=== PATIENT | male | born 1945 | race Caucasian/White ===

== ENCOUNTER 2019-03-01 14:32 | Inpatient (IN) | payer OTHER, MEDICAID ==
[~2019-03-01] VITALS: Ht 152.4 cm; Wt 66.7 kg
[2019-03-01 15:01] VITALS: BP 112/60
--- NOTE | 2019-03-01 15:15 | NUR ---
73 Y MALE BIB CAREGIVER C/O TREMORS X3 HOURS. PER MATRIX REPAIRER PT UNABLE TO STAND UP AND MORE CONSFUSED THAN USUAL. CAREGIVER STATES PATIENT USUALLY ENJOYS INTERACTING BUT AFTER LUNCH HAD NO DESIRE TO COMMUNICATE. PT HARD OF HEARING. CAREGIVER COMMUNICATES BY WRITING DOWN INFORMATION ON AN IPAD AND DISPLAYING IT FOR PT TO SEE. PT VERBAL WHEN HE WANTS TO COMMUNICATE. PT ALERT. PT CONTINENT WITH ASSISTANCE. WEARS DIAPER BRIEFS. AMBULATES WITH ASSISTANCE. USES WHEELCHAIR. BED IS DOWN, BED RAIL X 2, ERMD TO SEE PT. MEDHX:DEMENTIA, DEPRESSION, PSYCHOSIS, HYPOTHYROIDISM, GERD, HTN, BPH SEE MED REC
--- NOTE | 2019-03-01 15:23 | NUR ---
PT PLACED ON FENCE MANUFACTURE SUPERVISOR
[2019-03-01] MEDS ORDERED: NACL 0.9% 2,000 ML IV SCH (15:36)
--- NOTE | 2019-03-01 15:39 | NUR ---
DR ELDRIDGE NOTIFIED
[2019-03-01] MEDS ORDERED: KETOROLAC 30 MG/ML VIAL IVP ONE (15:40)
[2019-03-01] MEDS ORDERED: diphenhydrAMINE 50 MG/ML VIAL IVP ONE (15:40)
[2019-03-01] MEDS ORDERED: PIPERACILLIN/TAZOBACTAM 3.375 GM in DEXT 5% MINI-BAG PLUS 50 ML IV ONE (15:40)
[2019-03-01] MEDS ORDERED: POLY17PD65 PO (15:47)
[2019-03-01] MEDS ORDERED: DONE10TA10 PO (15:47)
[2019-03-01] MEDS ORDERED: FAMO-90 PO (15:47)
[2019-03-01] MEDS ORDERED: DOCU-299 PO (15:47)
[2019-03-01] MEDS ORDERED: BENZ-248 PO (15:47)
[2019-03-01] MEDS ORDERED: NIFE30TE8 PO (15:47)
[2019-03-01] MEDS ORDERED: HAL2L PO (15:47)
[2019-03-01] MEDS ORDERED: FINA5TAB1 PO (15:47)
[2019-03-01] MEDS ORDERED: SYN.05 PO (15:47)
[2019-03-01] MEDS ORDERED: CHOL200072 PO (15:47)
--- NOTE | 2019-03-01 15:53 | NUR ---
LAB AT BEDSIDE
[2019-03-01] MEDS ORDERED: PIPERACILLIN/TAZOBACTAM 3.375 GM VIAL IV ONE (15:56)
[2019-03-01 16:04] LABS: BASOPHILS % (AUTO) 0.1 % (0.0-2.0); EOSINOPHILS % (AUTO) 0.1 % (0.0-4.0); HEMOGLOBIN 12.4 g/dL (12.0-18.0); LYMPHOCYTES # (AUTO) 0.5 K/uL (2.0-11.5); LYMPHOCYTES % (AUTO) 3.5 % (20.5-51.1); MEAN CORPUSCULAR HEMOGLOBIN 32 pg (27-31); MEAN CORPUSCULAR HGB CONC 34 g/dL (33-37); MEAN CORPUSCULAR VOLUME 93.9 fL (80-94); MONOCYTES # (AUTO) 1.4 K/uL (0.8-1.0); MONOCYTES % (AUTO) 9.3 % (1.7-9.3); NEUTROPHILS # (AUTO) 13.1 K/uL (1.8-7.7); PLATELET COUNT (AUTO) 181 K/uL (140-450); RED BLOOD CELL COUNT(AUTO) 3.94 MIL/uL (4.20-6.10); RED CELL DISTRIBUTION WIDTH 13.9 % (11.6-13.7); WHITE BLOOD COUNT (AUTO) 15.1 K/uL (4.8-10.8)
--- NOTE | 2019-03-01 16:09 | NUR ---
EMT AT BEDSIDE FOR EKG
[2019-03-01 16:12] LABS: ANION GAP 11.9 (8-16); CARBON DIOXIDE 28.3 mmol/L (21-32); CHLORIDE 105 mmol/L (98-107); CREATININE 1.4 mg/dL (0.7-1.3); GLUCOSE 138 mg/dL (74-106); POTASSIUM 4.2 mmol/L (3.5-5.1); SODIUM SERUM 141 mmol/L (136-145); UREA NITROGEN, BLOOD 20 mg/dL (7-18)
--- NOTE | 2019-03-01 16:20 | NUR ---
PT EXTREMLY AGITATED UNABLE TO OBTAIN ABG. DR ELDRIDGE MADE AWARE OF PT STATUS AND ABG NOT OBTAINED. PHYSICIAN STATES UNDERSTANDING STATES NOT TO OBTAIN ABG .
--- NOTE | 2019-03-01 16:23 | NUR ---
2.6 LACTIC ACID, DR ELDRIDGE NOTIFIED
[2019-03-01 16:27] LABS: ASPARTATE AMINOTRANSFERASE 15 U/L (15-37); TOTAL BILIRUBIN 0.7 mg/dL (0.0-1.0)
[2019-03-01] MEDS ORDERED: LORazepam 2 MG/ML VIAL IM ONE (16:40)
--- NOTE | 2019-03-01 16:41 | NUR ---
PT EXTREMELY AGITATED. CONTINUES TO KICK AT HOSPITAL EMPLOYEES. USING PROVOCATIVE LANGUAGE.
[2019-03-01] MEDS ORDERED: FLEPED RC (16:44)
[2019-03-01] MEDS ORDERED: ZINC10OI TP ×2 (16:44→18:53)
[2019-03-01] MEDS ORDERED: MAGN400S PO (16:44)
[2019-03-01] MEDS ORDERED: CARB15DR52 OT (16:44)
[2019-03-01] MEDS ORDERED: BISA5ECT43 RC (16:44)
[2019-03-01] MEDS ORDERED: TAMS0.4C96 PO (16:44)
[2019-03-01] MEDS ORDERED: ACET325C5 PO (16:44)
[2019-03-01] MEDS ORDERED: [UNRECOGNIZED DRUG - CODE] PO (16:44)
--- NOTE | 2019-03-01 17:05 | NUR ---
PT PULLED OUT IV.
--- NOTE | 2019-03-01 17:06 | NUR ---
fluids stopped at this time
--- NOTE | 2019-03-01 17:50 | NUR ---
asked dr hale whether he wanted a pacheco or straight cath, states he just wants a urine sample. straight cath to be placed. per caregiver, pt can sometimes use restroom with assistance. pt wears diaper. felt there was no need for pacheco administration without reasonable cause.
--- NOTE | 2019-03-01 17:52 | NUR ---
pt given option to use urinal. pt refused.
--- NOTE | 2019-03-01 17:54 | NUR ---
# 14 FR Urinary catheter inserted utilizing sterile technique. Immediate return of 50 ml yellow urine noted. Urine sample collected and sent to lab. Pt did not tolerate procedure well. attempted to kick and hit throughout insertion.
--- NOTE | 2019-03-01 18:10 | NUR ---
r forearm iv 24 gauge. fluids re-started
[2019-03-01] MEDS ORDERED: ONDANSETRON 4 MG/2 ML VIAL IM/IVP PRN (18:15)
[2019-03-01] MEDS ORDERED: DOCUSATE SODIUM 100 MG GELCAP PO PRN (18:15)
[2019-03-01] MEDS ORDERED: ACETAMINOPHEN 325 MG TAB PO PRN (18:15)
[2019-03-01] MEDS ORDERED: MAGNESIUM HYDROXIDE 2400 MG/30 ML UDC PO PRN (18:40)
[2019-03-01] MEDS ORDERED: SODIUM PHOSPHATE PEDIATRIC 67.5 ML ENEM RC PRN (18:40)
[2019-03-01] MEDS ORDERED: POLYETHYLENE GLYCOL 17 GM PO SCH (18:40)
[2019-03-01] MEDS ORDERED: NEOMYCIN/POLYMYXIN/BACITRACIN 0.9 GM/1 PKT TP PRN (18:40)
[2019-03-01] MEDS ORDERED: ZINC OXIDE 20% 60 GM TUBE TP PRN (18:40)
[2019-03-01 18:52] LABS: MAGNESIUM 2.1 mg/dL (1.8-2.4); THYROID STIMULATING HORMONE 0.6 uIU/mL (0.34-3.74)
[2019-03-01] MEDS ORDERED: BACI1OIN20 TP (18:52)
[2019-03-01 19:05] VITALS: BP 115/52
--- NOTE | 2019-03-01 19:05 | NUR ---
APPLIED SOFT WRIST RESTRAINTS ACCORDING TO MD ORDER
--- NOTE | 2019-03-01 19:05 | NUR ---
RECEIVED BEDSIDE REPORT FROM ER NURSE, PATIENT IN BED, COMBATIVE, KICKING, UNABLE TO FOLLOW COMMANDS AND MAKE NEEDS KNOWN. IV IN RIGHT FA 20 G INFUSING 2000 ML NS BOLUS. DATABASE PROGRAMMER SHAYY AT BEDSIDE ABLE TO ANSWER ADMISSION QUESTIONS. V/S STABLE, BED ALARM ON, MRSA SCREEN COLLECTED AND SENT TO LAB.
[2019-03-01] MEDS ORDERED: NACL 0.9% 1,000 ML IV ONE (19:10)
--- NOTE | 2019-03-01 19:10 | NUR ---
Patient will be admitted to care of AGUILERA. Admited to TELE. Will go to room 119A. Belongings list completed. Report to JOANNA LAW.
--- NOTE | 2019-03-01 19:10 | NUR ---
700 cc of normal saline running at pt admit
[2019-03-01 19:12] LABS: APPEARANCE,URINE HAZY (CLEAR); BILIRUBIN,URINE NEGATIVE (NEGATIVE); BLOOD, URINE TRACE-I (NEGATIVE); COLOR,URINE YELLOW (YELLOW); LEUKOCYTE ESTERASE ,URINE 2+ (NEGATIVE); NITRITE, URINE NEGATIVE (NEGATIVE); PH,URINE 6.5 (5.0-9.0); UGLUCOSE NEGATIVE (NEGATIVE)
[2019-03-01 19:47] LABS: WBC,URINE TOO MANY TO COUNT /HPF (0-5)
--- NOTE | 2019-03-01 20:44 | NUR ---
CALL FROM LAB SPOKE WITH GERARDO Addendum: 03/01/19 at 2044 by Savanna Dupont RN LACTIC ACID 2.6 NOW TRENDING DOWN TO 2.3
[2019-03-01] MEDS: DOCUSATE SODIUM 100 MG GELCAP PO SCH (20:57)
[2019-03-01] MEDS: FINASTERIDE 5 MG TAB PO SCH (20:57)
[2019-03-01] MEDS: BENZTROPINE 1 MG TAB PO SCH (20:57)
[2019-03-01] MEDS: DONEPEZIL 10 MG TAB PO SCH (20:57)
[2019-03-01] MEDS: TAMSULOSIN 0.4 MG CAP PO SCH (20:57)
[2019-03-01] MEDS ORDERED: cefTRIAXone 1,000 MG VIAL ONE (20:58)
--- NOTE | 2019-03-01 20:59 | NUR ---
DUE MEDICATIONS GIVEN.
[2019-03-01] MEDS ORDERED: HALOPERIDOL 10 MG/5 ML UDC PO SCH (21:00)
[2019-03-01] MEDS ORDERED: POLYETHYLENE GLYCOL 17 GM/PKT PO SCH (21:00)
[2019-03-01] MEDS: HALOPERIDOL 1 MG TAB PO SCH (21:00)
--- NOTE | 2019-03-01 21:05 | NUR ---
RESTRAINTS STILL NEEDED, PATIENT KICKING AND HITTING STAFF, WILL CONTINUE TO MONITOR CIRCULATION
--- NOTE | 2019-03-01 22:47 | NUR ---
PO HALDOL NOT AVAILABLE, MEDICATION NOR GIVEN, RESIDENTS AWARE.
--- NOTE | 2019-03-01 23:25 | NUR ---
RESTRAINTS STILL NEEDED, PATIENT COMBATIVE, CIRCULATION NOT COMPROMISED.
[2019-03-02] VITALS: BP 136/78
--- NOTE | 2019-03-02 00:29 | NUR ---
REPOSITIONED PATIENT, PATIENT ATTEMPTED TO KICK STAFF WHEN TURNING.
--- NOTE | 2019-03-02 01:05 | NUR ---
WILL CONTINUE NEED FOR SOFT WRIST RESTRAINTS, CIRCULATION NOT COMPROMISED
--- NOTE | 2019-03-02 03:05 | NUR ---
WILL CONTINUE WITH NEED FOR SOFT WRIST RESTRAINTS, CIRCULATION NOT COMPROMISED.
[2019-03-02 04:00] VITALS: BP 124/69
--- NOTE | 2019-03-02 04:14 | NUR ---
PATIENT TEMP 100.4 F CALLED RESIDENTS TO CHANGE TYLENOL TO LIQUID FORM SINCE PILLS HAD TO BE CRUSHED AND PLACED IN APPLE SAUCE
[2019-03-02] MEDS ORDERED: ACETAMINOPHEN 650 MG/20.3 ML UDC PO PRN (04:15)
--- NOTE | 2019-03-02 04:37 | NUR ---
PATIENT SPIT OUT SOME OF THE LIQUID TYLENOL. WILL CONTINUE TO MONITOR TEMP.
[2019-03-02] MEDS ORDERED: ACETAMINOPHEN 650 MG/20.3 ML UDC ONE (04:39)
--- NOTE | 2019-03-02 05:30 | NUR ---
APPLIED ICE PACKS TO PATIENT
--- NOTE | 2019-03-02 06:14 | NUR ---
TEMP NOW 99.5 F WILL CONTINUE TO MONITOR
--- NOTE | 2019-03-02 07:25 | NUR ---
RECEIVED BEDSIDE REPORT FROM RN SUMMER. PT STABLE, SLEEPING, BUT EASILY AROUSABLE. NO SIGNS OF DISTRESS NOTED. AAOX1. NO REDNESS, SWELLING, OR INFLAMMATION NOTED ON IV SITE. PT ON SOFT WRIST RESTRAINTS DUE TO PT WAS KICKING, PULLING OUT IV LINE, AND SPITTING PER RN SUMMER. PT IS SLEEPING AND CALM AT THIS TIME. CALL MCCAULEY WITHIN REACH. BED IN LOWEST POSITION, BED ALARM ON. SAFETY MEASURES IN PLACE. PLAN OF CARE REVIEWED.
--- NOTE | 2019-03-02 07:30 | NUR ---
ENDORSED PATIENT TO DAY SHIFT NURSE, PATIENT STABLE.
[2019-03-02 08:00] VITALS: BP 110/72
--- NOTE | 2019-03-02 08:30 | NUR ---
PT REFUSED BREAKFAST. PT TRIED TO KICK AND SPIT OUT FOOD GIVEN BY BRILLIANDEER LOPPER. WILL CONTINUE TO MONITOR.
[2019-03-02] MEDS: HALOPERIDOL 1 MG TAB PO SCH ×2 (09:00→20:38)
[2019-03-02] MEDS ORDERED: NON-FORMULARY ITEM (Cholecalciferol (Vitamin D3) (Vitamin D3) 2,000 IU) PO SCH (09:00)
[2019-03-02] MEDS: NIFEdipine 30 MG TABER PO SCH (09:00)
[2019-03-02] MEDS ORDERED: LEVOTHYROXINE 0.05 MG TAB PO SCH (09:00)
[2019-03-02] MEDS: DOCUSATE SODIUM 100 MG GELCAP PO SCH ×2 (09:00→20:37)
[2019-03-02] MEDS: FAMOTIDINE 20 MG TAB PO SCH (09:00)
[2019-03-02] MEDS: CHOLECALCIFEROL 1,000 IU TAB PO SCH (09:00)
[2019-03-02] MEDS: BENZTROPINE 1 MG TAB PO SCH ×2 (09:00→20:37)
[2019-03-02] MEDS: TAMSULOSIN 0.4 MG CAP PO SCH ×2 (09:00→20:37)
[2019-03-02 09:10] LABS: T4 (THYROXINE) 7.8 ug/dL (4.5-12.0)
--- NOTE | 2019-03-02 09:55 | NUR ---
PATIENT REFUSED TO TAKE MEDICATIONS. PT IS VERBALLY ABUSIVE, PT KICKS AND SPITS AT RN. PT STILL ON BILATERAL SOFT WRIST RESTRAINTS. MADE DR URIBE AWARE. PER MD, JUST HOLD OFF PO MEDICATIONS. CALLED PT'S CAREGIVER SHAYY TO GET SOME INFORMATION REGARDING COMFORT MEASURES FOR PT. PER SHAYY, PT IS ALWAYS DIFFICULT WHEN IN A NEW ENVIRONMENT AND THERE IS NOTHING THAT STAFF CAN DO TO MAKE PATIENT COMPLIANT WITH CARE. WILL CONTINUE TO MONITOR.
--- NOTE | 2019-03-02 11:09 | NUR ---
SPOKE WITH ARMHOLE BASTER JUMPBASTING MARVIN REGARDING PT'S LAB DRAW FOR THIS MORNING. PER MARVIN, SHE WAS UNABLE TO DRAW BLOOD FOR PT DUE TO PT WAS UNCOOPERATIVE, KICKING, AND SPITTING AT [facility]. PER MARVIN, SHE WILL COME BACK LATER IN THE AFTERNOON TO TRY AGAIN. Addendum: 03/02/19 at 1114 by Shade Castro RN MADE DR URIBE AWARE.
[2019-03-02] MEDS: NACL 0.9% 1,000 ML IV SCH ×2 (11:37→20:35)
--- NOTE | 2019-03-02 11:40 | NUR ---
[facility]'S TICKET SPECULATOR KALYAN AT THE BEDSIDE. SPOKE WITH KALYAN REGARDING PLAN OF CARE. VITAL SIGNS TAKEN, PT STABLE. ADMINISTERED SCHEDULED MEDICATION, PT TOLERATED WELL. CHANGED IV BAG. FREEZER UNLOADER MARVIN AT THE BEDSIDE TO DRAW BLOOD FOR MORNING LABS. WILL CONTINUE TO MONITOR PT.
[2019-03-02 12:00] VITALS: BP 132/43
[2019-03-02] MEDS ORDERED: PIPER/TAZO 2.25GM/D5W PREMIX 50 ML IV SCH (12:00)
[2019-03-02 12:14] LABS: EOSINOPHILS % (AUTO) 0.2 % (0.0-4.0); HEMATOCRIT 32.9 % (36-52); LYMPHOCYTES # (AUTO) 1.5 K/uL (2.0-11.5); LYMPHOCYTES % (AUTO) 9.6 % (20.5-51.1); MEAN CORPUSCULAR HEMOGLOBIN 32 pg (27-31); MEAN CORPUSCULAR HGB CONC 33 g/dL (33-37); MEAN CORPUSCULAR VOLUME 94.6 fL (80-94); MONOCYTES # (AUTO) 1.4 K/uL (0.8-1.0); MONOCYTES % (AUTO) 9.1 % (1.7-9.3); NEUTROPHILS # (AUTO) 12.9 K/uL (1.8-7.7); NEUTROPHILS % (AUTO) 81.1 % (42.2-75.2); PLATELET COUNT (AUTO) 141 K/uL (140-450); RED BLOOD CELL COUNT(AUTO) 3.48 MIL/uL (4.20-6.10); RED CELL DISTRIBUTION WIDTH 14.3 % (11.6-13.7)
[2019-03-02 13:03] LABS: ANION GAP 11.7 (8-16); CARBON DIOXIDE 25.3 mmol/L (21-32); CHLORIDE 109 mmol/L (98-107); GLUCOSE 94 mg/dL (74-106); SODIUM SERUM 142 mmol/L (136-145); UREA NITROGEN, BLOOD 18 mg/dL (7-18)
--- NOTE | 2019-03-02 13:30 | NUR ---
PT STABLE, SLEEPING, BUT EASILY AROUSABLE. NO SIGNS OF DISTRESS NOTED. CHEST RISE AND FALL VISIBLY NOTED.
[2019-03-02 13:35] LABS: CHOL/HDL RATIO 3.2 (1-4.5)
--- NOTE | 2019-03-02 15:40 | NUR ---
VITAL SIGNS TAKEN, PT STABLE. PT WAS ABLE TO PULL OUT LEFT ARM FROM RESTRAINT. SOFT WRIST RESTRAINT WAS PUT BACK ON PT'S LEFT ARM. NO INJURY NOTED. WILL CONTINUE TO MONITOR PT.
[2019-03-02 16:00] VITALS: BP 124/45
--- NOTE | 2019-03-02 17:15 | NUR ---
PT REPOSITIONED, LINENS AND GOWN CHANGED. NO OTHER NEEDS AT THIS TIME.
--- NOTE | 2019-03-02 18:10 | NUR ---
PT'S CAREGIVER SHAYY AT THE BEDSIDE FEEDING PT.
--- NOTE | 2019-03-02 19:15 | NUR ---
RECEIVED REPORT FROM DAY SHIFT NURSE FOR CONTINUITY OF CARE. PATIENT LYING DOWN, SLEEPING IN BED. PATIENT IS ON ROOM AIR. NO SIGNS OF DISTRESS AT THIS TIME. PATIENT IS HARD OF HEARING, USED BOARD TO COMMUNICATE. IV ACCESS ON RIGHT FOREARM 20 GA WITH NS RUNNING AT 100ML/HR, IV SITE PATENT AND INTACT. RESTRAINTS ARE IN PLACE, CIRCULATION CHECKED. BED IN LOW POSITION AND ALARM IS ON, AND SIDE RAILS ARE UP.
--- NOTE | 2019-03-02 19:15 | NUR ---
ENDORSED PT TO RN SUMMER FOR CONTINUITY OF CARE. PT STABLE.
[2019-03-02 20:00] VITALS: BP 123/63
[2019-03-02] MEDS: DONEPEZIL 10 MG TAB PO SCH (20:37)
[2019-03-02] MEDS: FINASTERIDE 5 MG TAB PO SCH (20:38)
--- NOTE | 2019-03-02 20:41 | NUR ---
PATIENT REFUSED ALL PO SCHEDULED MEDICATIONS. SPITTING OUT MEDICATIONS AND KICKING. ADMINISTERED SCHEDULED ROCEPHIN AND NS AT 100 ML/HR. HALDOL NOT AVAILABLE, DR WALKER AWARE, NO CHANGE IN ORDERS.
--- NOTE | 2019-03-02 21:05 | NUR ---
PATIENT COMBATIVE AND ATTEMPTING TO KICK, WILL CONTINUE NEED FOR SOFT WRIST RESTRAINTS, CIRCULATION NOT COMPROMISED.
--- NOTE | 2019-03-02 23:05 | NUR ---
PATIENT COMBATIVE HITTING AND SPITTING WILL CONTINUE WITH NEED FOR RESTRAINTS. CIRCULATION NOT COMPROMISED.
--- NOTE | 2019-03-03 00:20 | NUR ---
PATIENT REFUSED V/S, KICKING TOWARDS STAFF. CHARGE NURSE KATIANA AWARE.
--- NOTE | 2019-03-03 00:50 | NUR ---
PATIENT RESTING IN BED, ONLY BECOMES AGGRESSIVE WHEN BEING TOUCHED OR MOVED.
--- NOTE | 2019-03-03 01:05 | NUR ---
PATIENT AGGRESSIVE WHEN BEING TOUCHED, SPITTING, KICKING, BITING. CHECKED RESTRAINTS, CIRCULATION NOT COMPROMISED. WILL CONTINUE WITH SOFT WRIST RESTRAINTS. WILL CONTINUE TO MONITOR.
--- NOTE | 2019-03-03 03:30 | NUR ---
PATIENT WAS SLEEPING IN BED, NO SIGNS OF DISTRESS, PT REFUSED VS. AGGRESSIVE WHEN BEING TOUCHED. SOFT WRIST RESTRAINTS, CIRCULATION NOT COMPROMISED. WILL CONTINUE TO MONITOR PT.
[2019-03-03] MEDS: NACL 0.9% 1,000 ML IV SCH ×2 (04:57→14:54)
--- NOTE | 2019-03-03 05:02 | NUR ---
RE-CHECKED RESTRAINTS, CIRCULATION NOT COMPROMISED. WILL CONTINUE TO MONITOR PATIENT.
--- NOTE | 2019-03-03 06:00 | NUR ---
RE-ASSESSED RESTRAINTS. CIRCULATION NOT COMPROMISED. WILL CONTINUE TO MONITOR PATIENT.
--- NOTE | 2019-03-03 07:15 | NUR ---
ENDORSED PATIENT TO DAY SHIFT NURSE FOR CONTINUITY OF CARE. PATIENT LYING IN BED SLEEPING. NO SIGNS OF DISTRESS AT THIS TIME.
--- NOTE | 2019-03-03 07:20 | NUR ---
RECEIVED PT FROM CAN PILER NURSES, PT IS AWAKE AND LYING ON THE BED WITH RESTRAINT IN PLACE, SIDE RAILS ARE UP AND CALL LIGHT WITHIN REACH, PT HAS AN IV LINE ON THE RT FA G.20 WITH NS INFUSING AT 100ML/HR, INTACT,FALL PRECAUTION ENFORCED, PT IS COMBATIVE, NO SIGN OF DISTRESS NOTED AND WILL MONITOR PT.
--- NOTE | 2019-03-03 07:53 | NUR ---
PATIENT HAS BEEN SCREENED AND CATEGORIZED LOW NUTRITION RISK. PATIENT WILL BE SEEN WITHIN 7 DAYS OF ADMISSION. 03/08/19
[2019-03-03 08:00] VITALS: BP 126/69
--- NOTE | 2019-03-03 08:30 | NUR ---
ATTEMPTED TO CHECK VITAL SIGN SNOW BUT PT REFUSED AND STARTED KICKING. WILL COME BACK LATER.
[2019-03-03] MEDS: HALOPERIDOL 1 MG TAB PO SCH ×2 (09:00→21:00)
[2019-03-03] MEDS: FAMOTIDINE 20 MG TAB PO SCH (10:31)
[2019-03-03] MEDS: NIFEdipine 30 MG TABER PO SCH (10:31)
[2019-03-03] MEDS: CHOLECALCIFEROL 1,000 IU TAB PO SCH (10:32)
[2019-03-03] MEDS: BENZTROPINE 1 MG TAB PO SCH ×2 (10:34→21:00)
[2019-03-03] MEDS: POLYETHYLENE GLYCOL 17 GM/PKT PO SCH (10:34)
[2019-03-03] MEDS: DOCUSATE SODIUM 100 MG GELCAP PO SCH ×2 (10:35→21:00)
[2019-03-03] MEDS: TAMSULOSIN 0.4 MG CAP PO SCH ×2 (10:35→21:00)
--- NOTE | 2019-03-03 10:35 | NUR ---
PT IS AWAKE AND VITAL SIGN CHECKED DONE WITH THE HELP OF 3 OTHER PEOPLE, BP IS 126/69, PULSE IS 104, O2 SATURATION IS 96%, TEMP. IS 98.4 AND RESPIRATION IS 16/MIN, ORAL MEDICATIONS WERE CRUSHED AND PT TOOK IT BUT SPIT IT OUT, THE REST OF THE MEDICATIONS WERE PUT TO WASTE BECAUSE PT IS REFUSING TO TAKE THE MEDICATIONS, HEPARIN WAS GIVEN VIA ABDOMEN SUBQ. PT WAS CLEANED AND REPOSITIONED AND WAS MADE COMFORTABLE ON THE BED. WILL MONITOR PT.
[2019-03-03 12:00] VITALS: BP 123/70
--- NOTE | 2019-03-03 12:45 | NUR ---
PT IS AWAKE AND RESTRAINTS ARE STILL IN PLACE, COMBATIVE, ASKED ASSISTANCE OF 2 OTHER STAFF AND VITAL SIGNS WERE TAKEN, BP IS 123/70, PULSE IS 101, O2 SATURATION IS 96%, TEMPERATURE IS 98.6, NO SIGN OF DISTRESS NOTED. WILL MONITOR PT.
--- NOTE | 2019-03-03 13:27 | NUR ---
TRIED TO DO AN ECHO HOWEVER PATIENT WAS VERY AGITATED. WAS NOT ABLE TO DO ECHO AT THIS TIME. NOTIFIED DR. FAIR AND ANI SANFORD.
[2019-03-03 16:00] VITALS: BP 128/15
--- NOTE | 2019-03-03 16:30 | NUR ---
PT WAS REPOSITIONED AND CLEANED BY QM NURSE. VITAL SIGNS TAKEN AND BP IS 128/75, PULSE IS 94, O2 SATURATION IS 96%, TEMP IS 98.4 , NO SIGN OF DISTRESS NOTED, WILL MONITOR PT.
--- NOTE | 2019-03-03 19:05 | NUR ---
ENDORSED PT TO SLIME PLANT OPERATOR HELPER NURSE, PT IS ASLEEP LYING ON THE BED.
--- NOTE | 2019-03-03 19:06 | NUR ---
REPORT RECEIVED BY AM NURSE. PT SLEEPING IN BED. BREATHING EQUAL AND UNLABORED. NO VISIBLE SIGNS OF DISTRESS. PT RIGHT FOREARM 20G INTACT AND INFUSING WELL. PT HAS SOFT WRIST RESTRAINTS IN PLACE. SAFETY MEASURES IN PLACE. BED IN LOW POSITION, BED ALARM ON, YELLOW GOWN AND SOCKS IN PLACE. PT BOARD AT BESIDE FOR COMMUNICATION. CALL LIGHT WITHIN REACH. WILL CONTINUE TO MONITOR.
[2019-03-03 20:01] VITALS: BP 152/75
--- NOTE | 2019-03-03 20:42 | NUR ---
COMMUNICATED WITH PT VIA WRITING ON PTS BOARD AND PAPER. PT WAS COOPERATIVE WITH TAKING VITALS. PT WAS CLEANED AND REPOSITIONED BY CNAS AT THIS TIME. PT PULLED THE FINGER OF THE EC TEACHER. PT WAS ASKED NOT TO PULL FINGERS OR KICK. IV ANTIBIOTICS WERE HUNG AT THIS TIME. NURSE ASKED PT VIA WRITING IF HE WOULD TAKE HIS MEDICATION. PT DID NOT RESPOND. ATTEMPTED TO ADMINISTER MEDICATION TO PT VIA CRUSHING AND PLACING MEDICATION IN APPLESAUCE. PT WOULD CLOSE HIS MOUTH TIGHT, TURN HEAD AWAY FROM NURSE. RESIDENT MD MADE AWARE THAT PT IS REFUSING MEDICATIONS.
[2019-03-03] MEDS: DONEPEZIL 10 MG TAB PO SCH (21:00)
[2019-03-03] MEDS: FINASTERIDE 5 MG TAB PO SCH (21:00)
--- NOTE | 2019-03-03 22:00 | NUR ---
LAB CALLED TO REPORT THAT PT URINE CULTURE IS POSITIVE FOR E. COLI AND ESBL. RESIDENT MD NOTIFIED OF RESULTS.
--- NOTE | 2019-03-04 00:05 | NUR ---
NURSE AND BASEBALL UMPIRE FOR LITTLE LEAGUE WENT INTO PTS ROOM TO TAKE VITALS AND REPOSTION. PT TRYING TO GRAB AT BASEBALL UMPIRE FOR LITTLE LEAGUE, PULLING OFF HER GLOVE. PT STATED "LEAVE ME ALONE" PT REFUSED TO HAVE VITALS TAKEN. PT RAISED MIDDLE FINGER TOWARDS BASEBALL UMPIRE FOR LITTLE LEAGUE AND SAID SHE IS A "BUTTHOLE"
--- NOTE | 2019-03-04 02:00 | NUR ---
ROUNDED ON PT. PT SLEEPING, BREATHING EQUAL AND UNLABORED. NO VISIBLE SIGNS OF DISTRESS. SAFETY MEASURES IN PLACE. WILL CONTINUE TO MONITOR.
[2019-03-04] MEDS: NACL 0.9% 1,000 ML IV SCH ×3 (03:20→23:20)
--- NOTE | 2019-03-04 05:30 | NUR ---
PT CLEANED AND REPOSITIONED BY TWO CNAS AND NURSE. PT COMBATIVE. PT TRYING TO KICK STAFF. PT PULLING ON SOFT RESTRAINTS AND BANGING HEAD ON PILLOW. PT ASKED IF HE WOULD TAKE MEDICATIONS. PT REFUSED. SAFETY PRECAUTIONS IN PLACE. WILL CONTINUE TO MONITOR.
[2019-03-04] MEDS ORDERED: MEDICATION REC. PHARMACY CONS. 1 EA MISC MC PRN (06:10)
[2019-03-04] MEDS: LEVOTHYROXINE 0.025 MG TAB PO SCH (06:30)
--- NOTE | 2019-03-04 07:20 | NUR ---
ENDORSED PT TO AM NURSE. PT IN STABLE CONDITION AT THIS TIME.
--- NOTE | 2019-03-04 07:21 | NUR ---
RECEIVED BEDSIDE REPORT FROM RN MALGORZATA. PT STABLE, SLEEPING, BUT EASILY AROUSABLE. NO SIGNS OF DISTRESS NOTED. DENIES PAIN OR SOB. NO REDNESS, SWELLING, OR INFLAMMATION NOTED ON IV SITE. PT ON BILATERAL SOFT WRIST RESTRAINTS DUE TO PT IS KICKING AND SPITTING AT STAFF PER PM RN DECEMBER. CALL MCCAULEY WITHIN REACH. BED IN LOWEST POSITION, BED ALARM ON. SAFETY MEASURES IN PLACE. PLAN OF CARE REVIEWED.
[2019-03-04 07:31] LABS: CARBON DIOXIDE 25.5 mmol/L (21-32); CHLORIDE 107 mmol/L (98-107); CREATININE 0.9 mg/dL (0.7-1.3); GLUCOSE 88 mg/dL (74-106); POTASSIUM 3.5 mmol/L (3.5-5.1); SODIUM SERUM 143 mmol/L (136-145); UREA NITROGEN, BLOOD 9 mg/dL (7-18)
[2019-03-04 07:40] LABS: BASOPHILS % (AUTO) 0.5 % (0.0-2.0); EOSINOPHILS # (AUTO) 0.3 K/uL (0-0.4); HEMATOCRIT 37.5 % (36-52); HEMOGLOBIN 12.7 g/dL (12.0-18.0); LYMPHOCYTES # (AUTO) 0.9 K/uL (2.0-11.5); MEAN CORPUSCULAR HEMOGLOBIN 32 pg (27-31); MEAN CORPUSCULAR HGB CONC 34 g/dL (33-37); MEAN CORPUSCULAR VOLUME 93.2 fL (80-94); MONOCYTES # (AUTO) 0.9 K/uL (0.8-1.0); NEUTROPHILS # (AUTO) 5.7 K/uL (1.8-7.7); NEUTROPHILS % (AUTO) 72.5 % (42.2-75.2); PLATELET COUNT (AUTO) 200 K/uL (140-450); RED BLOOD CELL COUNT(AUTO) 4.03 MIL/uL (4.20-6.10); RED CELL DISTRIBUTION WIDTH 13.5 % (11.6-13.7); WHITE BLOOD COUNT (AUTO) 7.9 K/uL (4.8-10.8)
[2019-03-04 07:43] LABS: MAGNESIUM 2.1 mg/dL (1.8-2.4)
[2019-03-04 08:00] VITALS: BP 152/65
[2019-03-04] MEDS: FAMOTIDINE 20 MG TAB PO SCH (09:00)
[2019-03-04] MEDS: DOCUSATE SODIUM 100 MG GELCAP PO SCH ×2 (09:00→21:00)
[2019-03-04] MEDS: HALOPERIDOL 1 MG TAB PO SCH ×2 (09:00→21:00)
[2019-03-04] MEDS: NIFEdipine 30 MG TABER PO SCH (09:00)
[2019-03-04] MEDS: BENZTROPINE 1 MG TAB PO SCH ×2 (09:00→21:00)
[2019-03-04] MEDS: TAMSULOSIN 0.4 MG CAP PO SCH ×2 (09:00→21:00)
[2019-03-04] MEDS: CHOLECALCIFEROL 1,000 IU TAB PO SCH (09:00)
--- NOTE | 2019-03-04 09:40 | NUR ---
PT STABLE, AWAKE, ALERT AND ORIENTED X2. PT REFUSED ALL SCHEDULED MEDICATIONS. INSTRUCTED AND COMMUNICATED WITH PT REGARDING MED REFUSAL THROUGH [employer] BOARD. WILL CONTINUE TO MONITOR PT.
--- NOTE | 2019-03-04 10:20 | NUR ---
PT REPOSITIONED, LINENS AND GOWN CHANGED. PT KICKING AND WAS COMBATIVE TO LOGGING TRACTOR OPERATOR'S. BILATERAL SOFT WRIST RESTRAINTS STILL IN PLACE. WILL CONTINUE TO MONITOR PT.
--- NOTE | 2019-03-04 10:48 | NUR ---
CALLED [facility] SPOKE WITH MAMIE ADMISSION WILL REVIEW THE PAPER WORK AND WILL CALL BACK
--- NOTE | 2019-03-04 11:10 | NUR ---
MADE DR WEBSTER AWARE THAT PT REFUSED 0900 SCHEDULED MEDICATIONS. WILL CONTINUE TO MONITOR PT.
[2019-03-04 12:00] VITALS: BP 135/68
[2019-03-04] MEDS ORDERED: guaiFENesin DM 200/20 MG-10 ML 10 ML UDC PO PRN (12:00)
--- NOTE | 2019-03-04 12:25 | NUR ---
VITALS SIGNS TAKEN, PT STABLE. PT IS CALM AT THIS MOMENT BUT STILL REFUSES TO EAT LUNCH.
[2019-03-04] MEDS: SODIUM PHOS / POTASSIUM PHOS 1 PKT PDR PO SCH ×2 (13:00→16:04)
[2019-03-04] MEDS ORDERED: PIPER/TAZO 3.375GM/D5W PREMIX 50 ML IV SCH (13:00)
--- NOTE | 2019-03-04 13:38 | NUR ---
ADMINISTERED SCHEDULED ZOSYN, PT TOLERATED WELL. PT REFUSED SCHEDULED NEUTRA-PHOS. CHANGED IV BAG. WILL CONTINUE TO MONITOR PT.
--- NOTE | 2019-03-04 15:12 | NUR ---
PT STABLE, SLEEPING, BUT EASILY AROUSABLE. NO SIGNS OF DISTRESS NOTED. CHEST RISE AND FALL VISIBLY NOTED.
[2019-03-04 16:00] VITALS: BP 144/62
--- NOTE | 2019-03-04 16:05 | NUR ---
VITAL SIGNS TAKEN, PT STABLE. PT AWAKE AND CALM AT THIS TIME. PT REFUSED SCHEDULED NEUTRA-PHOS. ENCOURAGED PT TO TAKE MEDICATIONS AND COMMUNICATED WITH PT USING THE [employer] ERASE BOARD. PT STATES HE DOES NOT WANT TO TAKE HIS MEDICATIONS. WILL CONTINUE TO MONITOR.
--- NOTE | 2019-03-04 17:29 | NUR ---
D/C IV ON RIGHT FA 20G, CATHETER TIP INTACT, BLEEDING CONTROLLED. REINSERTED IV ON LEFT AC 20G. ASYMPTOMATIC, INTACT, AND PATENT. PT TOLERATED WELL.
--- NOTE | 2019-03-04 18:05 | NUR ---
PT STABLE, SLEEPING, BUT EASILY AROUSABLE. NO SIGNS OF DISTRESS NOTED.
--- NOTE | 2019-03-04 19:15 | NUR ---
ENDORSED PT TO RN DECEMBER FOR CONTINUITY OF CARE. PT STABLE.
--- NOTE | 2019-03-04 19:16 | NUR ---
REPORT RECEIVED FROM AM NURSE. PT IN BED SLEEPING. BREATHING EQUAL AND UNLABORED. NO VISIBLE SIGNS OF DISTRESS. PT LEFT FOREARM 20G INTACT AND INFUSING WELL. SAFETY MEASURES IN PLACE. SOFT RESTRAINTS IN PLACE. CALL LIGHT WITHIN REACH. WILL CONTINUE TO MONITOR.
[2019-03-04 20:25] VITALS: BP 144/71
--- NOTE | 2019-03-04 20:25 | NUR ---
VITALS TAKEN ON PT. NURSE ASSISTED BY TWO CNAS. PT COOPERATIVE WITH VITALS. PT CLEANED AND REPOSITIONED. DURING CLEANING AND REPOSITIONING PT ATTEMPTED TO BITE CNAS AND TO KICK NURSE. PT SPIT AT DISTANCE EDUCATION TEACHER. PT WAS ASKED NOT TO KICK, PT REPLIED WITH "FUCK YOU, RITA." PT VERY COMBATIVE AT THIS TIME. PT REFUSED MEDICATIONS AT THIS TIME. WILL CONTINUE TO MONITOR.
[2019-03-04] MEDS: MEROPENEM 500 MG in NACL 0.9% 50 ML IV SCH (20:36)
[2019-03-04] MEDS: DONEPEZIL 10 MG TAB PO SCH (21:00)
[2019-03-04] MEDS: FINASTERIDE 5 MG TAB PO SCH (21:00)
--- NOTE | 2019-03-04 22:05 | NUR ---
ROUNDED ON PT. PT SLEEPING, NO VISIBLE SIGNS OF DISTRESS. BREATHING EQUAL AND UNLABORED. SOFT RESTRAINS IN PLACE. BED IN LOW POSITION. WILL CONTINUE TO MONITOR.
[2019-03-05] VITALS: BP 124/59
--- NOTE | 2019-03-05 00:05 | NUR ---
NURSE AND 2 CNAS TO CLEAN AND REPOSITION PT. ALL LINENS CHANGED DUE TO BEING WET. PT GOWN CHANGED. USED PT BOARD TO COMMUNICATE WITH PT. PT MOSTLY COOPERATIVES WITH MINIMAL OUTBURST. PT COOPERATIVE WITH VITALS BEING TAKEN. WHEN WASTE MACHINE OFFBEARER ATTEMPTED TO FIX GOWN PLACEMENT, PT PROCEEDED TO PULL GOWN UP TO EXPOSE PENIS. PT MADE STATEMENT REFERENCING HIS PENIS. PT COVERED WITH BLANKETS. BED ALARM ON, SAFETY MEASURES IN PLACE. WILL CONTINUE TO MONITOR.
[2019-03-05] MEDS: NACL 0.9% 1,000 ML IV SCH ×2 (00:56→20:19)
[2019-03-05 04:00] VITALS: BP 142/74
[2019-03-05] MEDS: MEROPENEM 500 MG in NACL 0.9% 50 ML IV SCH ×4 (05:33→22:00)
--- NOTE | 2019-03-05 07:35 | NUR ---
RECEIVED REPORT FROM DAY SHIFT RN, DECEMBER. PATIENT RESTING IN BED. NO SIGNS OF DISTRESS ON RA. SAFETY PRECAUTIONS IN PLACE. PATIENT HAS BEEN REFUSING MEDS AND GENERAL CARE.
[2019-03-05 08:00] VITALS: BP 157/69
--- NOTE | 2019-03-05 08:30 | NUR ---
VITALS STABLE. PATIENT ALLOWED US TO TAKE VITALS, CLEAN AND REPOSITION BUT REFUSED MEDICATIONS. PATIENT IS VERY HARD OF HEARING AND COMMUNICATES THROUGH A BOARD.
--- NOTE | 2019-03-05 10:00 | NUR ---
MARCUS IRVING FROM [facility] IS HERE AND ASSESSED PATIENT IN THE FLOOR, PER ARISTIDES SHE HAS A BED AVAILABLE FOR THIS PATIENT LONG PATIENT IS OFF RESTRAINT FOR 24 HOURS.
[2019-03-05] MEDS: POLYETHYLENE GLYCOL 17 GM/PKT PO SCH (11:58)
[2019-03-05] MEDS: SODIUM PHOS / POTASSIUM PHOS 1 PKT PDR PO SCH ×2 (11:59→13:00)
[2019-03-05 12:00] VITALS: BP 137/76
[2019-03-05] MEDS: CHOLECALCIFEROL 1,000 IU TAB PO SCH (12:00)
[2019-03-05] MEDS: DOCUSATE SODIUM 100 MG GELCAP PO SCH ×2 (12:01→21:00)
[2019-03-05] MEDS: BENZTROPINE 1 MG TAB PO SCH ×2 (12:01→21:00)
[2019-03-05] MEDS: TAMSULOSIN 0.4 MG CAP PO SCH ×2 (12:01→21:00)
[2019-03-05] MEDS: NIFEdipine 30 MG TABER PO SCH (12:01)
[2019-03-05] MEDS: FAMOTIDINE 20 MG TAB PO SCH (12:01)
--- NOTE | 2019-03-05 12:10 | NUR ---
ADMINISTERED 0900 MEDICATIONS. CAREGIVER SHAYY FROM [facility] AT BEDSIDE. PATIENT ATE HIS BREAKFAST, AND ACCEPTED HIS MEDICATIONS, ALLOWED US TO PLACE ON BED BENAVIDES AND CLEAN HIM. SAFETY PRECAUTIONS IN PLACE. NO SIGNS OF DISTRESS ON RA. WILL CONTINUE TO MONITOR. PATIENT HAS BEEN COMBATIVE TO PRIOR NURSES BUT IS COOPERATIVE WITH HIS CAREGIVER.
--- NOTE | 2019-03-05 12:45 | NUR ---
DR WEBSTER HERE AND UPDATED OF PATIENT TRANSFER PLAN TO [facility].
--- NOTE | 2019-03-05 12:50 | NUR ---
ADMINISTERED SCHEDULED MEDICATION. CAREGIVER AT BEDSIDE. PATIENT ACCEPTED MEDICATIONS. NO SIGNS OF DISTRESS. NO COMBATIVE BEHAVIOR.
--- NOTE | 2019-03-05 16:15 | NUR ---
PATIENT REFUSING BLOOD PRESSURE AND SPO2 TO BE TAKEN BUT DID ALLOW US TOE CLEAN AND REPOSITION HIM AND TAKE HIS TEMPERATURE. PATIENT WANTS OT SLEEP.
--- NOTE | 2019-03-05 19:20 | NUR ---
GAVE REPORT TO LOGISTICS CLERK RNLASHONDA. PATIENT SLEEPING IN STABLE CONDITION WITH SAFETY PRECAUTIONS IN PLACE.
--- NOTE | 2019-03-05 19:21 | NUR ---
REPORT RECEIVED FROM AM NURSE AT BEDSIDE. PT IN STABLE CONDITION. AAOX2. INTRODUCED SELF TO PT. BOARD UPDATED. PT IS VERY COMBATIVE AND REFUSED V/S CHECK. IV SITE L AC 20G RUNNING NS@60ML/HR PATENT AND INTACT. SKIN WARM, DRY, AND INTACT WITH NO OPEN WOUNDS. BED LOCKED IN LOW POSITION. CALL MCCAULEY WITHIN REACH. SAFETY PRECAUTION IN PLACE.
--- NOTE | 2019-03-05 20:00 | NUR ---
PT IS COMBATIVE AND VERY UNCOOPERATIVE. ATTEMPTED TO TAKE V/S ON ON PATIENT CALF AND STARTED TO KICK. TOLD ME TO SHUT UP AND GO TO HELL WHEN TRYING TO EXPLAIN WHY WE NEEDED TO GET VITAL SIGNS. PATIENT REFUSED ALL MEDICATIONS SCHEDULED FOR 2100 INCLUDING ABX. ASKED PATIENT IF IT WAS OK TO HANG MEDICATION HE SAID IT IS NOT OK. WILL CONTINUE TO MONITOR.
[2019-03-05] MEDS: HALOPERIDOL 5 MG TAB PO SCH (21:00)
[2019-03-05] MEDS: DONEPEZIL 10 MG TAB PO SCH (21:00)
[2019-03-05] MEDS: FINASTERIDE 5 MG TAB PO SCH (21:00)
--- NOTE | 2019-03-05 22:10 | NUR ---
PATIENT LAYING IN BED WITH HIS EYES CLOSED. UNABLE TO ASSESS PATIENT ANY FURTHER. WILL CONTINUE TO MONITOR.
--- NOTE | 2019-03-06 00:30 | NUR ---
PT SLEEPING COMFORTABLY IN BED. NO S/S OF DISTRESS NOTED. PT REFUSED V/S CHECK. WILL CONTINUE TO MONITOR.
--- NOTE | 2019-03-06 02:15 | NUR ---
PT SLEEPING COMFORTABLY IN BED. NO S/S OF DISTRESS NOTED. WILL CONTINUE TO MONITOR.
--- NOTE | 2019-03-06 04:05 | NUR ---
PT SLEEPING COMFORTABLY IN BED. NO S/S OF DISTRESS NOTED. RESPIRATIONS EVEN, UNLABORED, AND WNL.
[2019-03-06] MEDS: LEVOTHYROXINE 0.025 MG TAB PO SCH (05:39)
[2019-03-06] MEDS: MEROPENEM 500 MG in NACL 0.9% 50 ML IV SCH ×4 (05:40→20:54)
--- NOTE | 2019-03-06 05:40 | NUR ---
SYNTHROID GIVEN PO. MERREM HUNG AND RUNNING. PT TOLERATING WELL.
--- NOTE | 2019-03-06 07:15 | NUR ---
REPORT GIVEN TO AM NURSE AT BEDSIDE. PT IN STABLE CONDITION.
--- NOTE | 2019-03-06 07:16 | NUR ---
RECEIVED REPORT FROM SITE MEDICAL DIRECTOR RNLASHONDA. PATIENT IS AWAKE AND RESTING IN BED. NO SIGNS OF DISTRESS. SAFETY PRECAUTIONS IN PLACE.
--- NOTE | 2019-03-06 07:45 | NUR ---
PATIENT ATTEMPTING TO AMBULATE FROM BED. ALARM SOUNDED. PATIENT UNSTEADY ON FEET. ASSISTED PATIENT TO SITTING POSITION ON BED, ASSISTED PATIENT WITH URINAL. RETURNED PATIENT SAFELY TO BED. PATIENT ACCEPTING BREAKFAST TODAY. SET UP TRAY. PATIENT FEEDING SELF WITH NO SIGNS OF DISTRESS. BED ALARM ON. EDUCATED PATIENT ON USE OF CALL LIGHT FOR ASSISTANCE. PATIENT SHOOK HEAD "YES". PATIENT COMFORTABLE. WILL CONTINUE TO MONITOR.
[2019-03-06] MEDS: CHOLECALCIFEROL 1,000 IU TAB PO SCH (09:00)
[2019-03-06] MEDS: DOCUSATE SODIUM 100 MG GELCAP PO SCH ×2 (09:00→20:53)
[2019-03-06] MEDS: HALOPERIDOL 5 MG TAB PO SCH ×2 (09:00→20:53)
[2019-03-06] MEDS: BENZTROPINE 1 MG TAB PO SCH ×2 (09:00→20:52)
[2019-03-06] MEDS: TAMSULOSIN 0.4 MG CAP PO SCH ×2 (09:00→20:53)
[2019-03-06] MEDS: FAMOTIDINE 20 MG TAB PO SCH (09:00)
[2019-03-06] MEDS: NIFEdipine 30 MG TABER PO SCH (09:00)
--- NOTE | 2019-03-06 09:05 | NUR ---
PATIENT IS STILL EATING BREAKFAST. NO SIGNS OF DISTRESS. USED COMMUNICATION BOARD TO ASK IF I CAN ADMINISTER MEDICATIONS. PATIENT DID NOT RESPOND. PATIENT READ THE BOARD AND TURNED HIS HEAD AWAY. PATIENT IS REFUSING ORAL MEDICATIONS. USING COMMUNICATION BOARD I ASKED IF PATIENT WOULD ALLOW ME TO CHECK BLOOD PRESSURE. PATIENT ALSO TURNED HEAD AWAY. PATIENT IS REFUSING VITAL SIGNS TO BE TAKEN.
--- NOTE | 2019-03-06 10:00 | NUR ---
ARISTIDES FROM [facility] HERE AND ASSESSED PATIENT, SHE SAID PATIENT COULD GO TO [facility] AND SHE WILL CALL ME FOR BED.
--- NOTE | 2019-03-06 10:15 | NUR ---
[facility] [phone] SPOKE TO VY, SHE SAID PATIENT BELONGS TO [facility], . CALLED [place] AND LEFT MESSAGE.
--- NOTE | 2019-03-06 10:15 | NUR ---
PATIENT SLEEPING. NO SIGNS OF DISTRESS ON RA. SAFETY PRECAUTIONS IN PLACE. WILL CONTINUE TO MONITOR.
--- NOTE | 2019-03-06 10:45 | NUR ---
CALLED [facility] AGAIN [phone], NO ANSWER AGAIN , LEFT MESSAGE.
--- NOTE | 2019-03-06 11:00 | NUR ---
CALLED VY AGAIN TO GET ANOTHER CONTACT NUMBER FOR [facility] SINCE ITS VOICEMAIL ON THE FIRST NUMBER, CALLED [phone] LEFT MESSAGE.
--- NOTE | 2019-03-06 11:36 | NUR ---
CALLED [facility] [phone] SPOKE TO STARR TO OBTAIN AUTH, CLINICALS FAXED TO [phone].
--- NOTE | 2019-03-06 11:45 | NUR ---
PATIENT ATTEMPTING TO USE URINAL. ASSISTED PATIENT WITH URINAL. REPOSITIONED IN BED. SAFETY PRECAUTIONS IN PLACE. CALL LIGHT IN REACH. USED COMMUNICATION BOARD TO ASK PATIENT TO USE CALL LIGHT/RED BUTTON WHEN HE NEEDS HELP. PATIENT DID NOT RESPOND, TURNED HIS HEAD AWAY. PATIENT IS REFUSING CARE.
--- NOTE | 2019-03-06 13:30 | NUR ---
PATIENT SLEEPING. NO SIGNS OF DISTRESS ON RA. SAFETY PRECAUTIONS IN PLACE.
--- NOTE | 2019-03-06 13:34 | NUR ---
CALLED [facility] [phone] FOR AUTH, NO ANSWER, LEFT MESSAGE.
--- NOTE | 2019-03-06 14:00 | NUR ---
PATIENT RIPPED OUT IV, REFUSING REINSERTION. WILL INFORM CHARGE.
--- NOTE | 2019-03-06 14:38 | NUR ---
P.T. NOTES CLEARED W/ RN FOR P.T.; CONTACT ISOL PREC OBSERVED, Pt SLEEPY IN BED, WOKE UP W/ P.T., USED COMMUNICATION BOARD, Pt REFUSED TO PARTICIPATE W/ P.T., REFUSED FOR VITAL SIGNS TO BE ASSESSED, PUSHED COMM. BOARD AWAY, GESTURING HAND FOR P.T. STAFF TO LEAVE, EXPLAINED RISKS OF BED BOUND & BENEFITS OF THERAPY, Pt STILL REFUSED, RN AWARE; CALL [facility], PHONE, TABLE IN REACH, BED ALARM ON; FOLLOW UP WHEN PARTICIPATIVE.
[2019-03-06] MEDS: NACL 0.9% 1,000 ML IV SCH (14:42)
--- NOTE | 2019-03-06 14:56 | NUR ---
03/06/19 RD INITIAL ASSESSMENT COMPLETED PLEASE REFER TO NUTRITION ASSESSMENT UNDER CARE ACTIVITY FOR ESTIMATED NUTRITIONAL NEEDS. 1. CONTINUE REGULAR NA2G DIET TOLERATED 2. ENCOURAGE PO INTAKE AND PROVIDE FEEDING CLINICAL QUALITY ASSURANCE ASSOCIATE 3. RD TO FOLLOW-UP 3-5 DAYS, MODERATE RISK TAMANNA IBRAHIM, RD
--- NOTE | 2019-03-06 15:04 | NUR ---
CALLED [facility] SPOKE TO NENITA [phone] TO GET AUTH, CALLS WENT TO [employer] , LEFT MESSAGE. Addendum: 03/06/19 at 1519 by Hanna Jay WRONG ENTRY. CALLED [facility] NENITA, [phone] TO GET AUTH, CALLS WENT TO [employer], LEFT MESSAGE.
--- NOTE | 2019-03-06 15:20 | NUR ---
CALLED MARCUS IRVING AT [facility], TO FOLLOW-UP ON THIS PATIENT, PER ARISTIDES SHE WAS CALLING ALSO [facility] FOR AUTH BUT NO ANSWER.
--- NOTE | 2019-03-06 16:21 | NUR ---
NOTIFIED AND UPDATED DR WEBSTER OF PENDING [facility] AUTHORIZATION. ANI TY ALSO NOTIFIED.
--- NOTE | 2019-03-06 16:24 | NUR ---
CALLED [facility] [phone] CM LANCE SERRANO, CALL WENT TO [employer], LEFT MESSAGE AGAIN FOR SNF AUTHORIZATION.
--- NOTE | 2019-03-06 19:25 | NUR ---
REPORT RECEIVED FROM AM NURSE AT BEDSIDE. PT IN STABLE CONDITION. AAOX2-3. INTRODUCED SELF TO PT. PT IS HARD OF HEARING. PT IS VERY COMBATIVE AND REFUSES MEDICATION AND CARE. BOARD UPDATED. NO COMPLAINTS OF PAIN. NO SOB. PT REFUSES VS CHECKS AND UNABLE TO ASSESS. PT HAS NO IV ACCESS AT THIS POINT DUE TO HIM PULLING OUT THE IV LINE EARLIER IN THE DAY. BED LOCKED IN LOW POSITION. CALL M[facility]LEY WITHIN REACH. SAFETY PRECAUTION IN PLACE. ALL NEEDS MET AT THIS TIME.
--- NOTE | 2019-03-06 20:30 | NUR ---
IV PLACED RIGHT WRIST 22G PATENT AND INTACT. FLUSHES WELL. 1 ATTEMPT TAKEN. IV SITE INITIALED, TIMED, AND DATED.
[2019-03-06] MEDS: DONEPEZIL 10 MG TAB PO SCH (20:52)
[2019-03-06] MEDS: FINASTERIDE 5 MG TAB PO SCH (20:53)
--- NOTE | 2019-03-06 20:59 | NUR ---
PATIENT REFUSED ALL SCHEDULED MEDS AND IS EXTREMELY COMBATIVE. PT USES PROFANE LANGUAGE AND ATTEMPTS TO HIT AND KICK. NOTIFIED.
--- NOTE | 2019-03-06 22:15 | NUR ---
PT LAYING IN BED WATCHING TV. NO S/S OF DISTRESS NOTED.
--- NOTE | 2019-03-07 00:05 | NUR ---
PT SLEEPING COMFORTABLY IN BED. NO S/S OF DISTRESS NOTED. NO COMPLAINTS OF PAIN. NO SOB. AFEBRILE.
--- NOTE | 2019-03-07 01:45 | NUR ---
PT SLEEPING COMFORTABLY IN BED. NO S/S OF DISTRESS NOTED. WILL CONTINUE TO MONITOR.
--- NOTE | 2019-03-07 03:15 | NUR ---
PT SLEEPING COMFORTABLY IN BED. NO S/S OF DISTRESS NOTED. WILL CONTINUE TO MONITOR.
[2019-03-07] MEDS: MEROPENEM 500 MG in NACL 0.9% 50 ML IV SCH ×3 (05:00→20:39)
--- NOTE | 2019-03-07 05:30 | NUR ---
PATIENT REFUSED MERREM IV. NOTIFIED.
[2019-03-07] MEDS: NACL 0.9% 1,000 ML IV SCH ×2 (05:39→22:19)
--- NOTE | 2019-03-07 07:10 | NUR ---
REPORT GIVEN TO AM NURSE AT BEDSIDE. PT IN STABLE CONDITION.
--- NOTE | 2019-03-07 07:11 | NUR ---
RECEIVED REPORT FROM TOE FORMER NURSE FOR CONTINUITY OF CARE. PT IN STABLE CONDITION. RESPIRATIONS EVEN AND UNLABORED. IV INTACT AND PATENT. BED IN LOW POSITION.BED ALARM ON. CALL LIGHT AT BEDSIDE, INSTRUCTIONS GIVEN. WILL CONTINUE TO MONITOR.
[2019-03-07] MEDS: TAMSULOSIN 0.4 MG CAP PO SCH ×2 (09:00→21:00)
[2019-03-07] MEDS: BENZTROPINE 1 MG TAB PO SCH ×2 (09:00→21:00)
[2019-03-07] MEDS: HALOPERIDOL 5 MG TAB PO SCH ×2 (09:00→21:00)
[2019-03-07] MEDS: POLYETHYLENE GLYCOL 17 GM/PKT PO SCH (09:00)
[2019-03-07] MEDS: CHOLECALCIFEROL 1,000 IU TAB PO SCH (09:00)
[2019-03-07] MEDS: FAMOTIDINE 20 MG TAB PO SCH (09:00)
[2019-03-07] MEDS: DOCUSATE SODIUM 100 MG GELCAP PO SCH ×2 (09:00→21:00)
[2019-03-07] MEDS: NIFEdipine 30 MG TABER PO SCH (09:00)
--- NOTE | 2019-03-07 09:13 | NUR ---
PT REFUSING TO KEEP ORIENTATION AND MOBILITY SPECIALIST LEADS ON CHEST. PT TAKING THEM OFF AND THROWING ACROSS THE ROOM.
[2019-03-07 09:57] LABS: BASOPHILS % (AUTO) 0.4 % (0.0-2.0); EOSINOPHILS # (AUTO) 0.2 K/uL (0-0.4); EOSINOPHILS % (AUTO) 4.6 % (0.0-4.0); HEMATOCRIT 36.4 % (36-52); HEMOGLOBIN 12.5 g/dL (12.0-18.0); LYMPHOCYTES # (AUTO) 1.5 K/uL (2.0-11.5); LYMPHOCYTES % (AUTO) 28.2 % (20.5-51.1); MEAN CORPUSCULAR HEMOGLOBIN 31 pg (27-31); MEAN CORPUSCULAR HGB CONC 34 g/dL (33-37); MEAN CORPUSCULAR VOLUME 91.7 fL (80-94); MONOCYTES # (AUTO) 0.5 K/uL (0.8-1.0); MONOCYTES % (AUTO) 9.5 % (1.7-9.3); NEUTROPHILS % (AUTO) 57.3 % (42.2-75.2); PLATELET COUNT (AUTO) 250 K/uL (140-450); RED BLOOD CELL COUNT(AUTO) 3.97 MIL/uL (4.20-6.10); RED CELL DISTRIBUTION WIDTH 13.7 % (11.6-13.7); WHITE BLOOD COUNT (AUTO) 5.3 K/uL (4.8-10.8)
[2019-03-07 10:26] LABS: CARBON DIOXIDE 30.2 mmol/L (21-32); CHLORIDE 106 mmol/L (98-107); CREATININE 0.9 mg/dL (0.7-1.3); GLUCOSE 134 mg/dL (74-106); POTASSIUM 3.2 mmol/L (3.5-5.1); SODIUM SERUM 143 mmol/L (136-145); UREA NITROGEN, BLOOD 12 mg/dL (7-18)
--- NOTE | 2019-03-07 10:37 | NUR ---
CALLED [facility] [phone] CM LANCE SERRANO, CALL WENT TO [employer], LEFT MESSAGE AGAIN FOR SNF AUTHORIZATION.
--- NOTE | 2019-03-07 11:26 | NUR ---
PT LYING IN BED AT THIS TIME SLEEPING. RESPIRATIONS EVEN AND UNLABORED. BED IN LOW POSITION. BED ALARM ON. CALL LIGHT AT BEDSIDE. WILL CONTINUE TO MONITOR.
--- NOTE | 2019-03-07 12:23 | NUR ---
DC PLANNING This am called & spoke w Shelli @ [facility], it is an ICF halfway & cannot take pt on IV abx. Would prefer back to them if can go on po abx. Is aware & agreeable w SNF, [facility] if needs IV abx. This am called [facility], ph [phone] opt 1 for [facility], transferred me to Norah inpt coordinator ext [phone] & left msg. Received call back from Norah that she does not give auth that is waiting for auth from MARCUS Lloyd, that will leave her another msg for her w updated pt information. Called & left another msg w MARCUS Lloyd [phone] ext [phone], that need auth for SNF, pt needs IV abx, pt on isolation for E coli ESBL Urine. Addendum: 03/07/19 at 1549 by Casandra Bella CM Received msg from Prema @ [facility] that does not meet SNF criteria per Assistant Art Director, can dc home w home health for IV abx. Called & lt msg for Prema that cannot go home w IV abx, lives in ICF halfway which cannot take pt's on IV abx. Called & spoke w osmin Almazan coordinator @ [facility], ph [phone], & transferred me to Pre[facility]. Informed [facility] cannot go to halfway on IV abx, states to fax order & medication list. States will present information to Assistant Art Director again for review. Faxed dc order, MAR, & H&P indicating pt lives in halfway, fax [phone].
--- NOTE | 2019-03-07 12:57 | NUR ---
ASSISTED PT TO RESTROOM. PT AMBULATED WITH ASSIST. PT TOLERATED WELL. RESPIRATIONS EVEN AND UNLABORED. CALL LIGHT AT BEDSIDE. BED IN LOW POSITION. BED ALARM ON. WILL CONTINUE TO MONITOR.
--- NOTE | 2019-03-07 13:20 | NUR ---
GAVE ORDERED DUE IV ANTIBIOTICS. PT TOLERATED WELL. CALL LIGHT AT BEDSIDE. BED IN LOW POSITION. BED ALARM ON. WILL CONTINUE TO MONITOR.
[2019-03-07] MEDS ORDERED: POTASSIUM CHLORIDE 40 MEQ, LIDOCAINE 1% 25 MG in NACL 0.9% 250 ML IV SCH (14:00)
--- NOTE | 2019-03-07 14:44 | NUR ---
CLEANED PT AFTER LARGE BOWEL MOVEMENT. PT TOLERATED WELL. RESPIRATIONS EVEN AND UNLABORED. CALL LIGHT AT BEDSIDE. BED IN LOW POSITION. BED ALARM ON. WILL CONTINUE TO MONITOR.
--- NOTE | 2019-03-07 19:15 | NUR ---
GAVE REPORT TO RECONCILIATION SPECIALIST NURSE EMILY FOR CONTINUITY OF CARE. PT IN STABLE CONDITION
--- NOTE | 2019-03-07 19:16 | NUR ---
RECEIVED BEDSIDE REPORT FROM DAY SHIFT NURSEMONSE. PT SLEEPING IN BED. NO S/S OF SOB OR ANY RESPIRATION DISTRESS NOTED. SKIN WARM AND DRY TO TOUCH. IV SITE R WRIST, 22G, INTACT, PATENT AND ASYMPTOMATIC. BED LOW POSITION, CALL LIGHT WITHIN REACH. WILL CONTINUE TO MONITOR.
--- NOTE | 2019-03-07 20:39 | NUR ---
PT SLEEPING IN BED. GIVEN MERREM ORDERED. WILL CONTINUE TO MONITOR.
[2019-03-07] MEDS: DONEPEZIL 10 MG TAB PO SCH (21:00)
[2019-03-07] MEDS: FINASTERIDE 5 MG TAB PO SCH (21:00)
--- NOTE | 2019-03-07 21:21 | NUR ---
PT REFUSED ALL OTHER SCHEDULED MEDS. PT VERY AGGRESSIVE. TRY TO KICK AND HIT. EXPLAIN BENEFIT AND RISK BUT PT STILL REFUSED. WILL REPORT TO
--- NOTE | 2019-03-07 21:43 | NUR ---
CHANGED PT WITH HEAD STOCK TRANSFER CLERKWHITNEY. PT VERY AGGRESSIVE, TRY TO KICK AND HIT NURSE AND HEAD STOCK TRANSFER CLERK.
--- NOTE | 2019-03-07 23:55 | NUR ---
TRIED TO CHECK PT'S VITAL SIGN BUT PT AGGRESSIVELY REFUSED AND DISCONNECT IV LINE BY HIMSELF. TRIED TO RECONNECT BUT PT VERY AGGRESSIVELY REFUSED. EXPLAIN RISK AND BENEFIT X3. PT STILL REFUSED.
--- NOTE | 2019-03-08 02:35 | NUR ---
PT SLEEPING, TRY TO CONNECT IV LINE BUT PT AWAKE, AGGRESSIVELY REFUSED.
--- NOTE | 2019-03-08 04:30 | NUR ---
PT SLEEPING IN BED. NO S/S OF ACUTE DISTRESS NOTED. WILL CONTINUE TO MONITOR.
[2019-03-08] MEDS: MEROPENEM 500 MG in NACL 0.9% 50 ML IV SCH ×2 (05:00→09:44)
--- NOTE | 2019-03-08 05:48 | NUR ---
CHANGED PT WITH WHITNEY LOVTET. PT KICKED AND HIT. ATTEMPTED TO RECONNECTED IV LINE BUT FAIL. PT REFUSED MERREM. DR CHO PT REFUSES ALL MEDS.
[2019-03-08] MEDS: LEVOTHYROXINE 0.025 MG TAB PO SCH (06:30)
--- NOTE | 2019-03-08 06:30 | NUR ---
PT REFUSED SYNTHROID. PT VERY AGGRESSIVE. EXPLAIN BENEFIT AND RISK 3X. STILL REFUSED.
--- NOTE | 2019-03-08 07:15 | NUR ---
ENDORSED PT TO DAY SHIFT NURSECOLT. PT IN STABLE CONDITION.
--- NOTE | 2019-03-08 07:30 | NUR ---
RECEIVED BEDSIDE REPORT FROM CAD DESIGNER DRAFTER RN. PT NOT VERBALLY RESPONDING TO QUESTIONS NOW. EYES OPEN SPONTANEOUSLY. BECOMES AGGRESSIVE WHEN ATTEMPTING TO GET CLOSER TO TAKE VITALS. UNABLE TO DO HEAD TO TOE ASSESSMENT AT THIS TIME. PER CAD DESIGNER DRAFTER RN, IS AWARE PT IS REFUSING VITALS AND MEDICATIONS. IV INTACT (SL) BUT DISCONNECTED AT THIS TIME. CAD DESIGNER DRAFTER RN WAS UNABLE TO RECONNECT IV TO IVF DUE TO PT AGGRESSION/REFUSAL. PER CAD DESIGNER DRAFTER RN, SKIN INTACT AND AMBULATORY W/ ASSIST. ALL SAFETY PRECAUTIONS IN PLACE, WILL CONTINUE TO MONITOR.
--- NOTE | 2019-03-08 08:53 | NUR ---
DR. WEBSTER IS AWARE THAT PT IS COMBATIVE, HAS BEEN REFUSING ALL MEDICATIONS AND VITALS. PER DR. WEBSTER, TRY TO CONNECT TO IVF AND ADMINISTERED THE 0500 MERREM.
[2019-03-08] MEDS: BENZTROPINE 1 MG TAB PO SCH (08:56)
[2019-03-08] MEDS: NIFEdipine 30 MG TABER PO SCH (08:56)
[2019-03-08] MEDS: DOCUSATE SODIUM 100 MG GELCAP PO SCH (08:56)
[2019-03-08] MEDS: TAMSULOSIN 0.4 MG CAP PO SCH (08:56)
[2019-03-08] MEDS: HALOPERIDOL 5 MG TAB PO SCH (08:57)
[2019-03-08] MEDS: CHOLECALCIFEROL 1,000 IU TAB PO SCH (08:57)
[2019-03-08] MEDS: FAMOTIDINE 20 MG TAB PO SCH (08:57)
--- NOTE | 2019-03-08 09:37 | NUR ---
ADMINISTERED [address] WEBSTER ORDERS. UNABLE TO SCAN MEDICATION- ACQUISITIONS ASSISTANT RN ALREADY MARKED NON-ADMIN. Addendum: 03/08/19 at 0944 by Casandra Dickinson Meng RN DISREGARD. NO 0500 DOSE AVAILABLE-WAS RETURNED BACK TO PHARMACY. 1300 DOSE AVAILABLE. INFORMED PHARMACIST THAT DR. WEBSTER WOULD LIKE THE 0500 DOSE GIVEN. PER PHARMACIST, ADMIN THE 1300 DOSE NOW, DO NOT NEED TO ADMIN MERREM AGAIN AT 1300. NEXT DOSE WOULD BE FOR ACQUISITIONS ASSISTANT.
--- NOTE | 2019-03-08 09:45 | NUR ---
NITZA IN PATIENT COORDINATOR FROM [facility] CALLED [phone], SHE SAID PATIENT IS APPROVED FOR 7 DAYS SNF. [facility] WILL DO DANIEL FOR [facility] SINCE THEY ARE NOT CONTRACTED WITH THEM. PROVIDED CONTACT NUMBER OF [facility] . PER NITZA NO NEED AUTHORIZATION FOR TRANSPORTATION, WE COULD USE ANY TRANSPORTATION AND JUST SEND BILL TO [facility] PLAN CLAIM DEPARTMENT, [address] [address], [place] [id number].
--- NOTE | 2019-03-08 10:15 | NUR ---
CALLED [facility] [phone] AND DISCUSSED WITH HER TRANSFER PLANS. SHE SAID SHE WILL CALL ME FOR BED SOON SHE GETS THE DANIEL.
--- NOTE | 2019-03-08 10:41 | NUR ---
PT RESTING IN BED, NO S/S DISTRESS. ALL SAFETY PRECAUTIONS IN PLACE, WILL CONTINUE TO MONITOR.
--- NOTE | 2019-03-08 11:48 | NUR ---
[facility] SPOKE TO ARISTIDES [phone] FOR DANIEL. SHE SAID INSURANCE ALREADY EMAILED HER AND WAITING FOR DANIEL. WILL CONTINUE Addendum: 03/08/19 at 1347 by Hanna Jay WILL CONTINUE TO FOLLOW-UP WITH ARISTIDES FOR DANIEL.
--- NOTE | 2019-03-08 12:01 | NUR ---
PT IS RESTING IN BED, APPEARS CALM. ALL SAFETY PRECAUTIONS IN PLACE, WILL CONTINUE TO MONITOR.
--- NOTE | 2019-03-08 13:12 | NUR ---
CALLED AND LEFT MESSAGE TO ARISTIDES TO FOLLOW-UP ON DANIEL.
--- NOTE | 2019-03-08 13:14 | NUR ---
CALLED AND LEFT MESSAGE TO NITZA [phone] TO FOLLOW-UP ON DANIEL.
--- NOTE | 2019-03-08 13:50 | NUR ---
ARISTIDES FROM [facility] CALLED BACK WITH BED # 8A, DR SEXTON ADMITTING MD.
--- NOTE | 2019-03-08 13:52 | NUR ---
PT SLEEPING IN BED, EYES CLOSED, RESPIRATIONS EVEN AND UNLABORED. ALL SAFETY PRECAUTIONS IN PLACE, WILL CONTINUE TO MONITOR.
--- NOTE | 2019-03-08 14:19 | NUR ---
CALLED [facility] SPOKE WITH WILLY, ARRANGED TRANSPORTATION TO [facility] [address] [facility] [address], ROOM 8-A, STAGING TECHNICIAN TIME IS 3PM. NOTIFIED DR WEBSTER AND ANI GREGORY OF TRANSFER INFORMATION.
[2019-03-08] MEDS ORDERED: MERO500P2 IV (14:29)
--- NOTE | 2019-03-08 14:29 | NUR ---
CALLED AND LEFT MESSAGE FOR PERSON TO NOTIFY KALYAN SHI [phone] REGARDING PLAN TO TRANSFER TO [facility] SNF TODAY AROUND 3PM. LEFT CALLBACK NUMBER.
--- NOTE | 2019-03-08 14:44 | NUR ---
REPORT GIVEN TO ANKUSH ERNST) AT [facility]. ENDORSED MERREM 500MG IV Q8H UNTIL 03/12/19.
--- NOTE | 2019-03-08 15:15 | NUR ---
DISCHARGE PAPERWORK GIVEN TO PATIENT. NEW PRESCRIPTION/MEDICATION TEACHING AND MEDICATION RECONCILIATION TEACHING GIVEN TO PATIENT. DISCUSSED POC AT [facility] SNF. PATIENT IS NOT VERBALIZING UNDERSTANDING OF TEACHING AT THIS TIME. EYES OPEN AND ALERT BUT DOES NOT RESPOND TO QUESTIONING. WILL NEED FURTHER REINFORCEMENT OF TEACHING. ID BANDS REMOVED. ALL PERSONAL BELONGINGS ARE WITH PATIENT. PT PICKED UP BY [facility] IN STABLE CONDITION.
== END 2019-03-08 15:15 | DRG 871 ==
LOC: MED 14:32 → MTU 18:12
PROVIDERS: ADMIT General Practice; ATTEND General Practice
DX: A41.9 Sepsis, unspecified organism (principal); N17.0 Acute kidney failure with tubular necrosis; N39.0 Urinary tract infection, site not specified; E87.2 Acidosis; G90.8 Other disorders of autonomic nervous system; B96.20 Unspecified Escherichia coli [E. coli] as the cause of diseases classified elsewhere; E03.9 Hypothyroidism, unspecified; F03.90 Unspecified dementia, unspecified severity, without behavioral disturbance, psychotic disturbance, mood disturbance, and anxiety; F20.9 Schizophrenia, unspecified; I10 Essential (primary) hypertension; K21.9 Gastro-esophageal reflux disease without esophagitis; Z16.12 Extended spectrum beta lactamase (ESBL) resistance; N40.0 Benign prostatic hyperplasia without lower urinary tract symptoms; E86.0 Dehydration; F32.9 Major depressive disorder, single episode, unspecified; K59.09 Other constipation; R32 Unspecified urinary incontinence; H91.90 Unspecified hearing loss, unspecified ear; E87.6 Hypokalemia; E83.39 Other disorders of phosphorus metabolism
CPT/HCPCS: 36415; 70450; 71045; 80048; 80053; 81001; 82150; 83036; 83605; 83690; 83735; 83880; 84100; 84134; 84436; 84443; 84484; 85025; 85610; 85730; 87040; 87081; 87086; 87186; 93005; 93880; 96365; 96372; 96375; 97110; 97530; 99285; C1758; J0696; J1200; J1630; J1644; J1885; J2001; J2060; J2185; J2543; J3480; J7030; J7060; Q0092